=== PATIENT | male | born 1960 | race Caucasian/White ===

== ENCOUNTER → 2017-02-03 | Outpatient (CLI) | payer BC ==
[~2017-02-03] MED LIST: ACET-2267 PO; ACYC800T PO; ALLO100T PO; CEFD300C3 PO; CHOL20002 PO; DOXY100T2 PO; DXCC100C; FLUC200T31 PO; HYDR-3720 PO; IBUP-1779 PO; LEVO500T69 PO; MELO7.5T; NITR-33 PO; TR5C15 TOP; TRIA1CAP4 PO
--- NOTE | 2017-02-03 13:37 | Diagnostic Imaging Report ---
PROCEDURE: CT urinary tract, rule out kidney stone. TECHNIQUE: Multiple contiguous axial images were obtained through the abdomen and pelvis without the use of intravenous contrast. INDICATION: Left flank pain. FINDINGS: The lung bases appear clear. There is [id number] right hydronephrosis secondary to a UPJ elongated stone measuring 1.5 cm in size. There are multiple other nonobstructive stones in the mid and lower left kidney up to 5 mm in size. There is stranding in the left perinephric fat which is probably secondary to obstructive changes without necessarily a superimposed infection. Correlate clinically. The right kidney demonstrates 2 mm stone at the lower pole. No hydronephrosis. No ureteric or bladder stone. The abdominal aorta is normal in caliber. No para-aortic significantly enlarged lymph node is seen. The liver demonstrates a low-attenuation lesion in the inferior aspect of the right hepatic lobe measuring 1.6 cm similar to 03/2016 exam likely representing a hepatic cyst. The gallbladder, the spleen, the pancreas, and the adrenals appear unremarkable for unenhanced examination. There is a tiny fat-containing umbilical hernia. No significant free fluid or fluid collection in the abdomen or pelvis is seen. There is a focal area of perirectal fat to the right side of the upper rectum measuring 1.5 cm with peripheral calcified rim similar to the previous exam likely related to prior focal panniculitis or fat necrosis with no adverse development. There is no bowel obstruction. The prostate is slightly enlarged measuring 5.1 cm in transverse dimension. The osseous structures demonstrate bilateral hip osteoarthritis and lower lumbar spine degenerative changes. IMPRESSION: 1. Moderate left hydronephrosis secondary to an obstructive stone at the UPJ measuring 1.5 cm. There is prominent left perinephric stranding which can be seen from the obstruction. Correlate clinically for possible superimposed infection. 2. Other nonobstructive stones in the left kidney up to 5 mm are seen. The 2 mm nonobstructive stone in the lower pole of the right kidney also noted. 3. Tiny fat-containing umbilical hernia. The findings were called to Dr. Alen King at time of dictation. Dictated by: Dictated on workstation # [id number]
== END ==
LOC: RAD 11:59
PROVIDERS: ATTEND Internal Medicine
DX: R10.84 Generalized abdominal pain (principal); N13.2 Hydronephrosis with renal and ureteral calculous obstruction
CPT/HCPCS: 74176

== ENCOUNTER → 2019-07-10 | Outpatient (CLI) | payer BC ==
--- NOTE | 2019-07-10 13:24 | Diagnostic Imaging Report ---
PROCEDURE: US Renal Bilateral. TECHNIQUE: Multiple real-time grayscale images were obtained over the kidneys in various projections bilaterally. INDICATION: Left flank pain. Patient has history of kidney stones. FINDINGS: Right kidney measures 10.3 x 4.8 x 4.9 cm and the left kidney measures 12.8 x 5.4 x 4.4 cm. The left kidney does contain several nonobstructing calculi. There is no hydronephrosis. Bilateral ureteral jets were identified within the urinary bladder. Incidental note is made of a right lobe liver cyst approximately 18 mm in size. IMPRESSION: 1. Nonobstructing left renal calculi. No hydronephrosis is seen. 2. Right lobe hepatic cyst. Dictated by: Dictated on workstation # [id number]
== END ==
LOC: RAD 10:36
PROVIDERS: ATTEND Urology
DX: N20.0 Calculus of kidney (principal); K76.89 Other specified diseases of liver
CPT/HCPCS: 76770

== ENCOUNTER → 2019-07-11 | Outpatient (CLI) | payer BC ==
--- NOTE | 2019-07-11 17:58 | Diagnostic Imaging Report ---
PROCEDURE: CT urinary tract, rule out kidney stone. TECHNIQUE: Multiple contiguous axial images were obtained through the abdomen and pelvis without the use of intravenous contrast. Auto Exposure Controls were utilized during the CT exam to meet ALARA standards for radiation dose reduction. INDICATION: History of kidney stones. COMPARISON: Correlation is made with prior CT from 02/03/2017. FINDINGS: The lung bases are clear. Right lobe hepatic low density appears stable and most consistent with a cyst. The gallbladder is unremarkable. No biliary ductal dilatation is seen. The pancreas and spleen are unremarkable. No adrenal mass is detected. The right kidney is unremarkable. There are numerous stones within the left kidney. The largest single stone measures approximately 7 mm x 4 mm. No definite ureteral or bladder calculi are seen. There is no hydronephrosis. Aorta is non-aneurysmal. The small and large bowel loops are normal in caliber. There is no free fluid or fluid collection. Bony structures are nonacute. IMPRESSION: Numerous nonobstructing left renal calculi. No ureteral calculi or hydronephrosis are detected. Dictated by: Dictated on workstation # [id number]
== END ==
LOC: RAD 17:35
DX: N20.0 Calculus of kidney (principal)
CPT/HCPCS: 74176